=== PATIENT | male | born 1950 | race Caucasian/White ===

== ENCOUNTER → 2023-03-26 | Day surgery (SDC) | payer MEDICARE ==
[~2023-03-26] MED LIST: DOPTELET20 MG PO; FLOMAX0.4 MG PO; GLYCOPYRROLATE INJ 0.2 MG/ML VIAL ONE; LACTATED RINGER'S 1,000 ML ONE; LIDOCAINE HCL 2% LOCAL INJ 5 ML SDV VIAL INJ ONE; MAGNESIUM BISG500 GM PO; POVIDONE IODINE 0.05% 0.05 % ML PO ONE; PROPOFOL IV EMULSION 10 MG/ML 20 ML VIAL ONE; VITAMIN C1000 MG PO; ZINC
[2023-03-26 10:15] VITALS: BP 141/84; PULSE 64; RESP 16; O2SAT 97
== END | disposition home or self-care (01) ==
LOC: OR 08:02
PROVIDERS: ATTEND Internal Medicine Gastroenterology
DX: R19.5 Other fecal abnormalities (principal); D12.2 Benign neoplasm of ascending colon; K29.50 Unspecified chronic gastritis without bleeding; K74.60 Unspecified cirrhosis of liver; I85.10 Secondary esophageal varices without bleeding; K31.89 Other diseases of stomach and duodenum; K29.71 Gastritis, unspecified, with bleeding; Q27.33 Arteriovenous malformation of digestive system vessel; K64.8 Other hemorrhoids; K64.4 Residual hemorrhoidal skin tags; D61.818 Other pancytopenia; B19.20 Unspecified viral hepatitis C without hepatic coma; N40.0 Benign prostatic hyperplasia without lower urinary tract symptoms; Z79.899 Other long term (current) drug therapy; Z68.30 Body mass index [BMI] 30.0-30.9, adult; Z87.01 Personal history of pneumonia (recurrent); Z86.19 Personal history of other infectious and parasitic diseases
CPT/HCPCS: 43239; 45384; 88305; 88342; J2001; J2704; J7121; 45378